=== PATIENT | female | born 1970 | race African-American/Black ===

== ENCOUNTER 2016-05-25 20:05 | Emergency (ER) | payer MEDICAID, OTHER ==
[~2016-05-25] VITALS: Ht 172.7 cm; Wt 127.0 kg
[2016-05-25 20:44] VITALS: BP 134/99
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
[2016-05-25 22:25] VITALS: BP 120/82
--- NOTE | 2016-05-25 22:25 | NUR ---
Patient discharged with v/s stable. Written and verbal after care instructions given and explained BY DR ELIAS. Patient alert, oriented and verbalized understanding of instructions. Ambulatory with steady gait. All questions addressed prior to discharge. ID band removed. Patient advised to follow up with PMD. Rx of MOTRIN given. Patient educated on indication of medication including possible reaction and side effects. Opportunity to ask questions provided and answered.
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
== END 2016-05-25 22:25 | disposition home or self-care (01) ==
LOC: MED 20:05
DX: S02.2XXA Fracture of nasal bones, initial encounter for closed fracture (principal); S09.90XA Unspecified injury of head, initial encounter; J45.909 Unspecified asthma, uncomplicated; I10 Essential (primary) hypertension; Y08.89XA Assault by other specified means, initial encounter; Y93.89 Activity, other specified; Y92.89 Other specified places as the place of occurrence of the external cause; Y99.8 Other external cause status; J34.89 Other specified disorders of nose and nasal sinuses
CPT/HCPCS: 70450; 99284

== ENCOUNTER 2016-05-31 22:12 | Emergency (ER) | payer OTHER ==
[~2016-05-31] VITALS: Ht 172.7 cm; Wt 122.5 kg
[2016-05-31 22:46] VITALS: BP 145/91
--- NOTE | 2016-05-31 23:47 | NUR ---
OF3*
--- NOTE | 2016-05-31 23:47 | NUR ---
Patient to OF2.
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
--- NOTE | 2016-06-01 00:24 | NUR ---
Dr. Bullard evaluating patient.
[2016-06-01 01:05] VITALS: BP 131/72
== END 2016-06-01 01:06 | disposition home or self-care (01) ==
LOC: MED 22:12
DX: S06.0X0D Concussion without loss of consciousness, subsequent encounter (principal); J45.909 Unspecified asthma, uncomplicated; W50.0XXD Accidental hit or strike by another person, subsequent encounter

== ENCOUNTER 2020-08-15 22:15 | Emergency (ER) | payer OTHER ==
[~2020-08-15] VITALS: Ht 172.7 cm; Wt 131.5 kg
[2020-08-15 22:39] VITALS: BP 143/67
[2020-08-16 00:24] LABS: BASOPHILS % (AUTO) 0.3 % (0.0-2.0); EOSINOPHILS # (AUTO) 0.1 K/uL (0-0.4); EOSINOPHILS % (AUTO) 1.1 % (0.0-4.0); HEMATOCRIT 38.3 % (36-48); HEMOGLOBIN 12.7 g/dL (12.0-16.0); LYMPHOCYTES # (AUTO) 2.2 K/uL (2.5-16.5); LYMPHOCYTES % (AUTO) 22.6 % (20.5-51.1); MEAN CORPUSCULAR HEMOGLOBIN 28 pg (27-31); MEAN CORPUSCULAR HGB CONC 33 g/dL (33-37); MEAN CORPUSCULAR VOLUME 84.6 fL (80-94); MONOCYTES # (AUTO) 0.9 K/uL (0.8-1.0); MONOCYTES % (AUTO) 9.2 % (1.7-9.3); NEUTROPHILS # (AUTO) 6.5 K/uL (1.8-7.7); NEUTROPHILS % (AUTO) 66.8 % (42.2-75.2); PLATELET COUNT (AUTO) 269 K/uL (140-450); RED BLOOD CELL COUNT(AUTO) 4.52 MIL/uL (4.20-5.40); RED CELL DISTRIBUTION WIDTH 14.6 % (11.6-13.7); WHITE BLOOD COUNT (AUTO) 9.7 K/uL (4.8-10.8)
[2020-08-16 00:35] LABS: ANION GAP 12.4 (8-16); POTASSIUM 4.4 mmol/L (3.5-5.1)
[2020-08-16 00:41] LABS: ALBUMIN 3.5 g/dL (3.4-5.0); TOTAL BILIRUBIN 0.3 mg/dL (0.0-1.0)
[2020-08-16] MEDS ORDERED: FURO-570 PO (03:59)
[2020-08-16] MEDS ORDERED: [UNRECOGNIZED DRUG - CODE] MC (03:59)
[2020-08-16 04:27] VITALS: BP 126/81
== END 2020-08-16 04:27 | disposition home or self-care (01) ==
LOC: MED 22:15
DX: R60.0 Localized edema (principal); M79.604 Pain in right leg; M79.605 Pain in left leg; J45.909 Unspecified asthma, uncomplicated; I10 Essential (primary) hypertension; Z79.899 Other long term (current) drug therapy
CPT/HCPCS: 36415; 71045; 80053; 83880; 84484; 85025; 85379; 93005; 93970; 99285

== ENCOUNTER 2021-06-03 01:17 | Emergency (ER) | payer OTHER ==
[~2021-06-03] VITALS: Ht 175.3 cm; Wt 142.9 kg
[~2021-06-03 01:17] MED LIST: FURO-570 PO; [UNRECOGNIZED DRUG - CODE] MC
[2021-06-03 01:20] VITALS: BP 139/92
--- NOTE | 2021-06-03 01:30 | NUR ---
PT TAKEN TO BED 2
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
[2021-06-03] MEDS ORDERED: AMOX1TAB8 PO (02:03)
[2021-06-03 02:25] VITALS: BP 139/92
--- NOTE | 2021-06-03 02:25 | NUR ---
Patient discharged with v/s stable. Written and verbal after care instructions given and explained. Patient alert, oriented and verbalized understanding of instructions. Ambulatory with steady gait. All questions addressed prior to discharge. ID band removed. Patient advised to follow up with PMD. Rx of AMOX-CLAV given. Patient educated on indication of medication including possible reaction and side effects. Opportunity to ask questions provided and answered.
== END 2021-06-03 02:25 | disposition home or self-care (01) ==
LOC: MED 01:17
DX: S61.451A Open bite of right hand, initial encounter (principal); S60.221A Contusion of right hand, initial encounter; J45.909 Unspecified asthma, uncomplicated; I10 Essential (primary) hypertension; Z79.899 Other long term (current) drug therapy; Z79.2 Long term (current) use of antibiotics; W50.3XXA Accidental bite by another person, initial encounter; Y93.89 Activity, other specified; Y92.89 Other specified places as the place of occurrence of the external cause; Y99.8 Other external cause status
CPT/HCPCS: 90471; 90715; 99283